=== PATIENT | female | born 1955 | race Caucasian/White ===

== ENCOUNTER → 2020-06-22 | Outpatient (CLI) | payer BC ==
--- NOTE | 2020-06-22 16:26 | DIREP ---
PROCEDURE:CT LOWER EXTREMITY-RT W/O COMPARISON:None. INDICATIONS:RIGHT ANKLE PAIN M25.571 TECHNIQUE:Axial sections through the right ankle were performed with 3D, sagittal and coronal reconstructions from source images. No contrast was administered. FINDINGS: BONES:There is a comminuted fracture of the distal fibula. Main fracture line is oriented in oblique coronal plane beginning from proximal posterior fibular shaft and ending in the distal anterior fibular shaft. The distal fragment is displaced by 2 mm laterally with respect to the fibular shaft series 19366, image 17. Between the main proximal and distal fragments is a small central anteriorly avulsed fragment along the distal anterior margin of the main fracture line measuring 8.8 x 8.0 x 4.3 mm (cc by medial-lateral by AP) on sagittal series 77634, image 6 and axial series 4, image 35. This fragment is attached to the distal portion of the anterior inferior tibiofibular ligament series 3, image 35. There are no other fractures. There are no loose bodies within the ankle joint. Calcifications are present between the posterior medial malleolus and the medial talar body series 15404, images 21-22 which may represent sequela of old trauma. Dorsal marginal osteophyte formation is present between the talus and navicular. JOINTS:Normal SOFT TISSUES:There are no entrapped tendons. OTHER:Negative. CONCLUSION: 1. Comminuted fracture distal fibular shaft with main fracture line obliquely oriented from proximal posterior to distal anterior in the fibular shaft. A small central fragment is present along the anterior aspect of the main distal fracture line which is avulsed anteriorly and remains attached to the anterior inferior tibiofibular ligament. 2. Small calcifications between the medial malleolus and talus which may represent sequela of old trauma. 3. Developing arthritic changes at the talonavicular joint. Dictated by: Epi Cuenca M.D. on 06/22/2020 at 04:11 PM
== END | disposition home or self-care (01) ==
LOC: RAD 14:20
PROVIDERS: ATTEND Orthopaedic Surgery
DX: S82.891A Other fracture of right lower leg, initial encounter for closed fracture (principal); X58.XXXA Exposure to other specified factors, initial encounter; Y93.89 Activity, other specified; Y92.89 Other specified places as the place of occurrence of the external cause; Y99.8 Other external cause status; M25.571 Pain in right ankle and joints of right foot
CPT/HCPCS: 73700

== ENCOUNTER → 2021-04-11 | Outpatient (CLI) | payer BC ==
--- NOTE | 2021-04-11 15:38 | DIREP ---
PROCEDURE:Digital Screening Mammogram TECHNIQUE:MLO, CC, and XCCL digital images of each breast are provided. Computer Assisted Detection (CAD) was utilized. COMPARISON:[facility], MAMMO BILATERAL SCREENING, 01/19/2019, 01:16 PM. [facility], MAMMO BILATERAL SCREENING, 10/30/2017, 11:14 AM. [facility], MAMMO BILATERAL SCREENING, 09/18/2016, 11:59 AM. [facility], MAMMO BILATERAL SCREENING, 06/14/2015, 12:09 PM. [facility], MAMMO BILATERAL SCREENING, 05/20/2014, 10:15 AM. [facility], MAMMO BILATERAL SCREENING, 03/31/2020, 12:13 PM. INDICATIONS:SCREENING BREAST COMPOSITION:Scattered areas fibroglandular density. FINDINGS:There are no grouped microcalcifications, masses, or architectural distortions to suggest malignancy. There is no significant change as compared with the previous examination(s). IMPRESSION:No mammographic evidence of malignancy. RECOMMENDATIONS:Routine Screening Mammography per [employer] guidelines. OVERALL FINAL ASSESSMENT:BI-RADS 1 - Negative Mammogram Note: This facility participates in a mammography screening patient reminder system. Dictated by: Jose Goff M.D. on 04/11/2021 at 03:35 PM
== END | disposition home or self-care (01) ==
LOC: RAD 14:34
PROVIDERS: ATTEND Nurse Practitioner Women's Health
DX: Z12.31 Encounter for screening mammogram for malignant neoplasm of breast (principal)
CPT/HCPCS: 77067

== ENCOUNTER 2021-11-22 11:42 | Emergency (ER) | payer MEDICARE, BC ==
[~2021-11-22] VITALS: Ht 157.5 cm; Wt 104.3 kg
--- NOTE | 2021-11-22 11:52 | NUR ---
ARRIVAL PT ARRIVED VIA EMS TO ED 4 AFTER A FALL AT HOME. SHE WAS ON THE GROUND FOR AN HOUR AND LOST CONCIOUSNESS FOR A FEW MINUTES. PT IS ALERT AND ORIENTED. SHE HAS A BIG KNOT ON HER HEAD AND IS HAVING PAIN. PT TRANSFERRED TO [facility], VITALS TAKEN AND NOTIFIED.
[2021-11-22 11:55] VITALS: BP 115/59
[2021-11-22 12:28] LABS: BASOPHIL % 0.3 % (0.0-0.2); EOSINOPHIL # 0.1 10^3/uL (0.0-0.2); EOSINOPHIL % 1.5 % (0.0-5.0); LYMPHOCYTES # 1.32 10^3/uL1 (1.0-4.8); MEAN CORP HGB 29.7 pg (26-34); MONOCYTES # 0.5 10^3/uL (0.3-0.8); MONOCYTES % 7.8 % (5.0-12.0); NEUTROPHIL # 4.1 10^3/uL (1.8-7.7); NEUTROPHILS % 68.2 % (41.0-85.0); PLATELET COUNT 202 10^3/uL (150-400)
--- NOTE | 2021-11-22 12:41 | PCM.EKG ---
[facility] Test Date: 2021-11-22 Test Time: 12:34:01 Pat Name: ELDA BHAKTA Department: Room: Gender: F Dental Practice Manager: CAROLYN : [id number] Requested By: LIZANDRO MCCLAIN Order Number: [id number] Reading MD: Measurements Intervals [place] Rate: 51 P: 52 KS: 143 QRS: 53 QRSD: 98 T: 28 QT: 439 QTc: 405 Interpretive Statements Sinus rhythm No previous ECG available for comparison Please click the below link to view image of tracing.
[2021-11-22 12:44] LABS: CARBON DIOXIDE 26.5 mmol/L (20.0-32); GLUCOSE 106 mg/dL (70-110)
--- NOTE | 2021-11-22 12:44 | DIREP ---
PROCEDURE:CT HEAD OR BRAIN W/O CONTRAST COMPARISON:None. INDICATIONS:headache, hematoma TECHNIQUE:CT images were created without intravenous contrast. FINDINGS: VENTRICLES:The ventricles are normal in size and configuration. CEREBRUM:Normal cerebral morphology with appropriate orr white matter differentiation. CEREBELLUM:Negative. BRAINSTEM:Negative. BASAL CISTERNS:Negative. HEMORRHAGE:No MASS LESION:No ACUTE INFARCT:No SKULL:Normal. SINUSES:Normal. OTHER:Small posterior-lateral left sided scalp hematoma CONCLUSION:No acute intracranial findings. Dictated by: Ben Narayan MD on 11/22/2021 at 12:41 PM
--- NOTE | 2021-11-22 12:58 | DIREP ---
PROCEDURE:CT CERVICAL SPINE WITHOUT CONTRAST TECHNIQUE:Helical CT images of the cervical spine were obtained from skull base through T3-4 without the administration of IV contrast. Axial, sagittal, and coronal images are provided. Images are viewed in bone and soft tissue windows. COMPARISON:[facility], CT, CT HEAD BRAIN W/O CONTRAST, 11/22/2021, 12:32 PM. INDICATIONS:headache, hematoma FINDINGS: ALIGNMENT: Straightening of the normal cervical lordosis, which is likely secondary position muscle spasm. No subluxation. VERTEBRAE/DISCS: No fracture or compression abnormality. Lgrj-ss-bszzknhc disc and facet degenerative changes, most prominent from C4-5 through C6-7. Mild bony central canal stenosis at C5-6 and C6-7. PARASPINAL AREA: Normal. No prevertebral soft tissue swelling. OTHER: Mild calcified plaque in the carotid siphons and aortic arch. Otherwise unremarkable. Lung apices are clear. CONCLUSION: 1. No acute abnormality involving the cervical spine. 2. Zuzt-is-srduaqlc disc facet degeneration, most prominent from C4-5 through C6-7. Dictated by: Farooq Spears MD on 11/22/2021 at 12:52 PM
[2021-11-22 13:13] LABS: BILIRUBIN,URINE NEGATIVE (NEGATIVE); UROBILINOGEN,URINE 0.2 E.U./dL (0.2)
--- NOTE | 2021-11-22 14:13 | ER.PDOC ---
General Chief Complaint: Trauma Stated Complaint: FALL Time seen by MD: 12:11 Source: patient Exam Limitations: no limitations History of Present Illness Initial Comments 66-year-old female with a history of recurrent syncope, she had a syncopal episode earlier today in her house. She is not sure how long she was unconscious for. She woke up with a slight headache. She was again not on the back of her head. No nausea or vomiting. No numbness tingling or weakness. No facial droop. No slurred speech. No blood thinners. Allergies: Coded Allergies: prochlorperazine (Verified Allergy, Unknown, 11/22/21) . Past Medical History Medical History: diabetes, hypertension Surgical History: appendectomy, cholecystectomy, hysterectomy Social History Alcohol Use: none Drug Use: none Review of Systems All Other Systems: Reviewed and Negative Physical Exam General Appearance: Alert, No Apparent Distress Head: No Evidence of Injury Eye: PERRL, EOMI ENT: Nml external inspection Neck: non-tender, trachea midline Cardiovascular/Respiratory: Regular Rate, Rhythm, Normal Peripheral Pulses Gastrointestinal: Non Tender, Soft Back: Normal Inspection, No Vertebral Tenderness Extremities: Normal Inspection, No Pedal Edema NEURO/PSYCH: Alert, Oriented x3 Motor/Sensory: No Motor Deficit, No Sensory Deficit Skin: Normal Color [place] Coma Score Best Eye Response: (4) Open Spontaneously Best Verbal Response: (5) Oriented Best Motor Response: (6) Obeys Commands [place] Total: 15 Results/Orders Results/Orders Orders - LIZANDRO MCCLAIN MD Cbc With Auto Diff (11/22/21 12:13) Comprehensive Metabolic Panel (11/22/21 12:13) PT (11/22/21 12:13) Urinalysis (11/22/21 12:13) Ekg-Routine (11/22/21 12:13) Ct Head Wo Contrast (11/22/21 12:13) Ct Cervical Spine (11/22/21 12:13) Drug Scrn Med W Confirmation (11/22/21 12:13) Alcohol(Ml) (11/22/21 12:13) Troponin I High Sensitivity (11/22/21 12:13) Vital Signs Date Time Temp Pulse Resp B/P (MAP) Pulse Ox O2 Delivery O2 Flow Rate FiO2 11/22/21 11:59 18 11/22/21 11:55 97.5 67 18 115/59 (77) 98 Room Air* 0 21 11/22/21 11:55 97.5 67 18 98 11/22/21 11:55 97.5 67 18 Laboratory Tests Test 11/22/21 12:22 11/22/21 13:00 White Blood Count 6.0 10^3/uL (4.5-11.0) Red Blood Count 4.01 10^6/uL (4.00-5.20) Hemoglobin 11.9 g/dL (12.0-15.0) L Hematocrit 38.5 % (36.0-46.0) Mean Corpuscular Volume 96.0 fL (78-100) Mean Corpuscular Hemoglobin 29.7 pg (26-34) Mean Corpuscular Hemoglobin Concent 30.9 g/dL (33-36.5) L Red Cell Distribution Width 15.0 % (11.5-14.5) H Platelet Count 202 10^3/uL (150-400) Mean Platelet Volume 10.6 fL (7.8-11.0) Neutrophils (%) (Auto) 68.2 % (41.0-85.0) Lymphocytes (%) (Auto) 22.0 % (24.0-44.0) L Monocytes (%) (Auto) 7.8 % (5.0-12.0) Neutrophils # (Auto) 4.1 10^3/uL (1.8-7.7) Lymphocytes # (Auto) 1.32 10^3/uL1 (1.0-4.8) Monocytes # (Auto) 0.5 10^3/uL (0.3-0.8) Absolute Immature Granulocyte (auto 0.01 10^3 u/L (0-2) Absolute Eosinophils (auto) 0.1 10^3/uL (0.0-0.2) Immature Granulocytes % 0.20 % (0.00-0.50) Eosinophils % 1.5 % (0.0-5.0) Basophils % 0.3 % (0.0-0.2) H Basophils # 0.0 10^3/uL (0.0-0.1) Prothrombin Time 10.0 SEC (9.1-11.5) Prothrombin Time INR (Non-Therap) 1.0 Sodium Level 140 mmol/L (132-145) Potassium Level 3.8 mmol/L (3.6-5.2) Chloride Level 106.0 mmol/L (96-109) Carbon Dioxide Level 26.5 mmol/L (20.0-32) Anion Gap 11.3 Blood Urea Nitrogen 24 mg/dL (7-18) H Creatinine 1.21 mg/dL (0.59-1.40) Estimated GFR () 54.0 (>/=60) Est GFR (CKD-EPI)(Non-Afr [place]) 44.7 (>/=60) BUN/Creatinine Ratio 19.0 Glucose Level 106 mg/dL (70-110) Calcium Level 8.1 mg/dL (8.4-10.5) L Total Bilirubin 0.5 mg/dL (0.2-1.0) Aspartate Amino Transferase (AST) 18 U/L (0-35) Alanine Aminotransferase (ALT) 24 U/L (12-78) Alkaline Phosphatase 86 U/L (50-136) Troponin I High Sensitivity < 4 ng/L (0-50) Total Protein 6.1 g/dL (6.4-8.2) L Albumin 3.2 g/dL (3.4-5.0) L Globulin 2.9 Albumin/Globulin Ratio 1.103 Serum Alcohol < 3 mg/dL (0-50) Urine Collection Type UNKNOWN Urine Color YELLOW Urine Appearance CLEAR Urine Bilirubin NEGATIVE (NEGATIVE) Urine Ketones NEGATIVE (NEGATIVE) Urine Specific [place] 1.015 (1.005-1.030) Urine pH 5.0 (4.5-8.0) Urine Protein NEGATIVE (NEGATIVE) Urine Urobilinogen 0.2 E.U./dL (0.2) Urine Nitrate NEGATIVE (NEGATIVE) Urine Leukocyte Esterase NEGATIVE (NEGATIVE) Urine Glucose (Auto)(UA) NEGATIVE (NEGATIVE) Urine Blood NEGATIVE (NEGATIVE) Urine Opiates Screen NEGATIVE (c/o300ng/mL) Urine Methadone Screen NEGATIVE (c/o300ng/mL) Urine Barbiturates Screen NEGATIVE (c/o200ng/mL) Urine Phencyclidine Screen NEGATIVE (c/o 25ng/mL) Ur Amphetamine/Methamphetamine NEGATIVE ([id number]/mL) Urine MDMA Screen (Ecstasy) NEGATIVE (c/o300ng/mL) Urine Benzodiazepines Screen NEGATIVE (c/o200ng/mL) Urine Cocaine Metabolite Screen NEGATIVE (c/o300ng/mL) Ur Tetrahydrocannabinol (THC) Scrn NEGATIVE (c/o 50ng/mL) ER DEPART Departure Time of Disposition: 14:13 Disposition: 01 HOME / SELF CARE / HOMELESS Impression: Primary Impression: Concussion Condition: Improved Referrals: Darlene CHAO (PCP) PRIMARY CARE PROVIDER Duration or Time Spent with Pa: Shinem LIZANDRO MCCLAIN MD Nov 22, 2021 14:13
[2021-11-22 14:26] VITALS: BP 115/59
== END 2021-11-22 14:17 | disposition home or self-care (01) ==
LOC: EDBD 11:42 → ER 11:42
DX: S06.0X9A Concussion with loss of consciousness of unspecified duration, initial encounter (principal); E11.9 Type 2 diabetes mellitus without complications; I10 Essential (primary) hypertension; W19.XXXA Unspecified fall, initial encounter; Y93.89 Activity, other specified; Y92.009 Unspecified place in unspecified non-institutional (private) residence as the place of occurrence of the external cause; Y99.8 Other external cause status; Z90.49 Acquired absence of other specified parts of digestive tract; Z90.710 Acquired absence of both cervix and uterus
CPT/HCPCS: 36415; 70450; 72125; 80053; 80307; 81003; 82077; 84484; 85025; 85610; 93005; 99285